=== PATIENT | female | born 1960 | race Caucasian/White ===

== ENCOUNTER 2021-11-17 13:33 | Outpatient (CLI) | payer OTHER, SELFPAY ==
--- NOTE | 2021-11-17 13:48 | XR_ITS ---
WS: [id number] Exam: XR lumbar spine 6V w f/e [id number] Date/Time of Exam: 11/17/2021 1:51 PM Reason For Exam: FOOT DROP/BACK PAIN No fracture or dislocation. No flexion or extension instability seen. Disc spaces are well preserved. Increased lumbar lordosis. 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 XR/XR lumbar spine 6V w f/e [id number] IMPRESSION: 1. No fracture or instability identified. 2. Mild degenerative changes and increased lumbar lordosis.
== END 2021-11-17 13:34 | disposition home or self-care (01) ==
PROVIDERS: Visit Provider Family Medicine
DX: M21.379 Foot drop, unspecified foot (principal); M54.50 Low back pain, unspecified; M47.896 Other spondylosis, lumbar region
CPT/HCPCS: 72114

== ENCOUNTER 2022-01-19 06:00 | Outpatient (RCR) | payer OTHER, SELFPAY | END 2022-01-24 23:59 | disposition home or self-care (01) | LOC: GPT 06:00 | PROVIDERS: Referring Provider Neurological Surgery; Visit Provider Neurological Surgery | DX: G57.32 Lesion of lateral popliteal nerve, left lower limb (principal) | CPT/HCPCS: 97112; 97140; 97162 ==

== ENCOUNTER 2022-01-25 06:00 | Outpatient (RCR) | payer OTHER, SELFPAY | END 2022-02-24 23:59 | disposition home or self-care (01) | LOC: GPT 06:00 | PROVIDERS: Referring Provider Neurological Surgery; Visit Provider Neurological Surgery | DX: G57.32 Lesion of lateral popliteal nerve, left lower limb (principal) | CPT/HCPCS: 97032; 97110; 97112; 97140 ==

== ENCOUNTER 2022-02-25 06:00 | Outpatient (RCR) | payer OTHER, SELFPAY | END 2022-03-26 23:59 | disposition home or self-care (01) | LOC: GPT 06:00 | PROVIDERS: Visit Provider Neurological Surgery | DX: G57.32 Lesion of lateral popliteal nerve, left lower limb (principal) | CPT/HCPCS: 97110; 97112; 97140; 97164 ==

== ENCOUNTER 2022-03-27 06:00 | Outpatient (RCR) | payer OTHER, SELFPAY | END 2022-04-26 23:59 | disposition home or self-care (01) | LOC: GPT 06:00 | PROVIDERS: Visit Provider Neurological Surgery | DX: G57.32 Lesion of lateral popliteal nerve, left lower limb (principal) | CPT/HCPCS: 97032; 97110; 97112 ==